=== PATIENT | female | born 1995 | race African-American/Black ===

== ENCOUNTER 2016-12-20 11:57 | Inpatient (IN) | payer OTHER ==
[2016-12-20] VITALS (69 sets, daily range): BP systolic 86–195; BP diastolic 45–115
[~2016-12-20] VITALS: Ht 185.4 cm; Wt 62.0 kg
[2016-12-20] MEDS ORDERED: PRENTAB16 PO (12:07)
[2016-12-20] MEDS ORDERED: MAG Sulf (OBGYN) 20GM/500ML 20,000 MG in APPROPRIATE DILUENT 1 EA IV SCH ×2 (12:30→14:00)
[2016-12-20] MEDS ORDERED: NIFEdipine 10 MG CAP As Ordered ONE (13:00)
[2016-12-20] MEDS ORDERED: MAG Sulf (L&D) 4 GM/100 ML 4 GM in APPROPRIATE DILUENT 1 EA IV ONE (13:00)
[2016-12-20] MEDS ORDERED: CALCIUM GLUCONATE 1,000 MG in D5W MINI-BAG PLUS 100 ML IV PRN (13:00)
--- NOTE | 2016-12-20 13:03 | HPEPDOC ---
Obstetrical History & Physical General Date of Admission Dec 20, 2016 at 11:57 History of Present Illness 21 yo G1 @ 37+1 by LMP([id number]) and 9 wk US on 09JUN2016. Presents to L&D in wheelchair from [facility] with severe range BPs in clinic(164/107). She had a hx of mild range BPs at previous clinic visit. 24 hour protein-476. Denies DFM, LOF, CTX, VB, CRANDALL, visual changes, RUQ pain and n/v. GBS-Negative. Chief Complaint: Pre-eclamsia Information Provided By: Patient Age: 21 : 1 Term: 0 Pre-term: 0 Abortions: 0 Livin Care Care: Good Care Number of Visits: 11 Dating Final EDC: Jan 09, 2017 Final EDC for Daily Update: Jan 09, 2017 Final EDC by: LMP LMP: Apr 04, 2016 1st Trimester Date: Jun 09, 2016 Weeks + Days: 9.0 Estimated Date of Confinement: Jan 09, 2017 EGA at Admission: 37.1 Antepartum Course Diagnos(e)s 1. Chlamydia- positive @ [facility]; [facility] negative 2. UTI @ [facility], tx, [facility] negative 3. Back pain-resolved 4. anemia- iron ordered 5. mild range BP @ 36 wk visit Height (inches): 62 Pre- weight (lbs.): 118 Admission Weight (lbs.): 140 Change in Weight (lbs.): 22 Past Medical History Past Obstetrical History : Past Obstetrical History: [facility] History: No pertinent history Past Medical History Surgical History: Sharon teeth (2015) Family History Significant Family History: No pertinent family hx Social History Marital Status: Single Psychosocial History: No pertinent psych hx * Smoker: non-smoker Alcohol: Denies Drugs: denies Abuse Violence Screening Have you been hit/kicked/slapp: No Imunizations Tdap status: current ([id number]) Influenza Status: current (29MAR2016) Allergies Coded Allergies: No Known Allergies (Unverified , 12/20/16) Medications Scheduled Multivitamins/ ( Complete 14-0.4 mg) 1 Tab Tab, TAB PO DAILY Physical Examination Physical Examination GENERAL: A&O x 3 ABDOMEN: Gravid, soft and non-tender to touch FETUS: VTX by Vito and SVE HEART RATE: RRR, no m/r/g LUNGS: CTA EXTREMITIES: No edema. No clonus. DTRs +2 Laboratory Data 24H LABS Laboratory Tests 2 12/20/16 12:27: Serology Scanned Report Hepatitis B Testing CBC/BMP 5.6/11.7/34.8/206 24 hour Protein- 476 uric acid-5.0 ALT-38 AST-33 LDH- 432 Urine Culture: Other (UTI @ [facility] treated, DIVINE mixed len) Pertinent Laboratoy Data Blood Type: B+ RBC Antibody Screen: Negative HIV: Negative Hepatitis B: Negative Hepatitis C: Unknown Rapid Plasma Reagin: Nonreactive Rubella: Immune Varicella: Immune Chlamydia/Gonorrhea: Negative (chlamydia positive @ [facility], neg on [facility]) Group B Streptococcus: Negative Quad Screen Test: Negative Glucose Tolerance Test: 97 Anatomy Ultrasound Ultrasound Date: Aug 22, 2016 Placenta Location: Anterior Normal Anatomy: Yes Placenta Previa: No Estimated Weight (grams): 336 Steroid Therapy Steroid Therapy: No Vaginal Examination Dilation: None Effacement: 0-30% Station: -3 Cervical Consistency: Firm Cervical Position: Posterior Presentation: Cephalic presentation Position: Vertex (occiput) Assessment Heart Rate (FHR): 140 Variability: Minimal to moderate Accelerations: None Tocometer Frequency: every 2-5 min. Duration: less than 60 seconds Strength: palpated as mild, resting tone palp/soft Multi-drug resistant Organism: No history of MDRO Assessment/Plan Assessment 21 yo G1 @ 37+1 by LMP([id number]) and 9 wk US on 09JUN2016. Presents to L&D in wheelchair from [facility] with severe range BPs in clinic(164/107). She had a hx of mild range BPs at previous clinic visit. 24 hour protein-476. Denies DFM, LOF, CTX, VB, CRANDALL, visual changes, RUQ pain and n/v. GBS-Negative. CAT I FHR tracing, with pre-e with severe features Plan Admit and orient. Manufacturing Engineering Manager and consent. Diet: NPO GBS negative Labs and IV per protocol Magnesium bolus 4 gms and then 2 gms/hr IV Nifedipine protocol for pre-e with severe features wesly now Strict I&O Counseled on induction of labor IOL. LR @ 125 ml/hr-titrated to not exceed a total of 125 ml IV/hr Anticipate DAVE SNOW CNM Dec 20, 2016 13:03
[2016-12-20] MEDS: LR 1,000 ML IV SCH (13:08)
[2016-12-20 13:15] LABS: MEAN CORPUSCULAR HEMOGLOBIN 30.3 pg (27.0-33.0); MEAN CORPUSCULAR HGB CONC 34.3 g/dl (32.0-36.5); MEAN CORPUSCULAR VOLUME 88.3 fl (80.0-96.0); RED CELL DISTRIBUTION WIDTH 12.9 % (11.5-14.5); WHITE BLOOD COUNT 6.2 K/mm3 (4.0-10.0)
[2016-12-20] MEDS ORDERED: NIFEdipine 10 MG CAP PO ONE (13:15)
[2016-12-20 13:29] LABS: ALT/SGPT 25 U/L (12-78); AST/SGOT 25 U/L (15-37); BILIRUBIN,TOTAL 0.4 MG/DL (0.2-1.0); CREATININE FOR GFR 0.69 MG/DL (0.55-1.02); URIC ACID 4.6 MG/DL (2.6-6.0)
--- NOTE | 2016-12-20 13:34 | IPNPDOC ---
Text Note Date of Service The patient was seen on 12/20/16. NOTE [id number] @ 1326 21 yo G1 @ 37+1 here for IOL with dx pre-eclampsia with severe features. S: resting on her left side. 2 friends at bedside for support. O: BPs have been in the severe range. Nifedipine 10 mg given PO approx 10 min ago. 5 min post-dose BP 160/102; 10 min post-dose BP 118/67; 15 min post-dose BP 120/65; 20 min post-dose BP 95/53 Magnesium is infusing FHR- BL 140, moderate variability, + accels, no decels CTX- Q 2-5 min, lasting < 90 sec, palpated as mild, resting tone palpated as soft EFW-3200 grams (did not document in H&P) SVE- closed/thick/high, vtx/post/firm 21 yo G1 @ 37+1 by LMP([id number]) and 9 wk US on [id number]. Presents to L&D in wheelchair from [facility] with severe range BPs in clinic(164/107). She had a hx of mild range BPs at previous clinic visit. 24 hour protein-476. Denies DFM, LOF, CTX, VB, CRANDALL, visual changes, RUQ pain and n/v. GBS-Negative. VS,Fishbone, I+O VS, Fishbone, I+O Laboratory Tests 12/20/16 12:47 Red Blood Count 3.80 L, Mean Corpuscular Volume 88.3, Mean Corpuscular Hemoglobin 30.3, Mean Corpuscular Hemoglobin Concent 34.3, Red Cell Distribution Width 12.9 DAVE SNOW CNM Dec 20, 2016 13:33
[2016-12-20] MEDS: MAG Sulf (OBGYN) 20GM/500ML 20,000 MG in APPROPRIATE DILUENT 1 EA IV SCH (13:40)
[2016-12-20] MEDS ORDERED: OXYTOCIN DRIP 30 UNITS in APPROPRIATE DILUENT 1 EA IV SCH (19:00)
--- NOTE | 2016-12-20 21:12 | IPNPDOC ---
Text Note Date of Service The patient was seen on 12/20/16. NOTE SBAR from CORNELIUS Hammond at ~2100 States feeling well, no CRANDALL/vis changes. On mag sulfate 1 gm/hr. BP's have been stable since dropping earlier with 1 dose PO nifedipine. NST Cat 1, ctx's spacing out and pt not feeling them, currently on 4 mu/min pitocin Will stop her pitocin and ripen the Cx with PO cytotec. 50 mcg q4 hrs prn per SOP. Sessions VS,Rosa I+O VSRosa I+O Laboratory Tests 12/20/16 12:47 Red Blood Count 3.80 L, Mean Corpuscular Volume 88.3, Mean Corpuscular Hemoglobin 30.3, Mean Corpuscular Hemoglobin Concent 34.3, Red Cell Distribution Width 12.9, Aspartate Amino Transf (AST/SGOT) 25, Alanine Aminotransferase (ALT/SGPT) 25, Lactate Dehydrogenase 225, Total Bilirubin 0.4, Uric Acid 4.6 Vital Signs Date Time Temp Pulse Resp B/P (MAP) Pulse Ox O2 Delivery O2 Flow Rate FiO2 12/20/16 20:45 87 126/78 (94) 12/20/16 19:15 98.0 18 SESSIONS,KIN Payne MD Dec 20, 2016 21:12
[2016-12-20] MEDS ORDERED: miSOPROStol 50 MCG 1/2 TAB (S0191) PO PRN (21:15)
[2016-12-21] VITALS (68 sets, daily range): BP systolic 105–192; BP diastolic 55–108
[2016-12-21] MEDS ORDERED: PROMETHAZINE INJ 25 MG/ML VIAL (J2550) IV ONE (04:15)
[2016-12-21] MEDS ORDERED: NALBUPHINE HCL 10 MG/ML AMP (J2300) IV PRN ×2 (04:15→11:09)
[2016-12-21] MEDS ORDERED: NALBUPHINE HCL 10 MG/ML AMP (J2300) IM PRN (04:15)
[2016-12-21] MEDS: LR 1,000 ML IV SCH ×3 (05:00→21:00)
--- NOTE | 2016-12-21 06:07 | IPNPDOC ---
Text Note Date of Service The patient was seen on 12/21/16. NOTE Vitals stable, no severe range BP's, neuro checks per RN all WNL NST Cat 1, decreased variability since nubain/phenergan roughly an hour ago, cytotec last at 0200. Cx 390/0/vtx well applied Doing very well. Will transition to Pitocin. Sessions VS,Rosa, I+O VS, Rosa I+O Laboratory Tests 12/20/16 12:47 Red Blood Count 3.80 L, Mean Corpuscular Volume 88.3, Mean Corpuscular Hemoglobin 30.3, Mean Corpuscular Hemoglobin Concent 34.3, Red Cell Distribution Width 12.9, Aspartate Amino Transf (AST/SGOT) 25, Alanine Aminotransferase (ALT/SGPT) 25, Lactate Dehydrogenase 225, Total Bilirubin 0.4, Uric Acid 4.6 Vital Signs Date Time Temp Pulse Resp B/P (MAP) Pulse Ox O2 Delivery O2 Flow Rate FiO2 12/21/16 04:59 79 107/57 (74) 12/21/16 04:31 97.7 12/20/16 23:59 16 I&O- Last 24 Hours up to 6 AM 12/21/16 06:00 Intake Total 1750 ml Output Total 2975 ml Balance -1225 ml SESSIONS,KIN Payne MD Dec 21, 2016 06:07
[2016-12-21 06:42] LABS: MEAN CORPUSCULAR HEMOGLOBIN 30.1 pg (27.0-33.0); MEAN CORPUSCULAR HGB CONC 34.1 g/dl (32.0-36.5); MEAN CORPUSCULAR VOLUME 88.3 fl (80.0-96.0); RED CELL DISTRIBUTION WIDTH 12.8 % (11.5-14.5); WHITE BLOOD COUNT 6.9 K/mm3 (4.0-10.0)
--- NOTE | 2016-12-21 08:13 | IPNPDOC ---
Text Note Date of Service The patient was seen on 12/21/16. NOTE [id number] @ [address] Fierro @ 6374- report given. 21 yo G1 @ 37+2 here for IOL with dx pre-eclampsia with severe features. S: resting on her right side. Pt responds slowly to commands. Moans during CTXs and falls asleep between CTXs. Mother and grandmother at bedside for support. O: VS- normal to moderate range BPs, afebrile FHR- BL 130, minimal to absent variability, no accels, early decels; last accel @ 0130 CTX- Q 2-5 min, lasting < 90 sec, palpated as mod-strong, resting tone palpated as soft SVE- 6/90/-2, soft/ant/vtx AROM- moderate amount of clear fluid, no odor noted Magnesium- 1 gm/hr Pitocin @ 2 mU/min O2 in place A: 21 yo G1 @ 37+2 in active labor with pre-e with severe features. CAT II FHR tracing and continued cervical change P: continue to monitor, reassess in 2 hours or prn, nursing checks Q 15 min, epidural now, 800 ml LR bolus now, continue to titrate pitocin per unit protocol FHR tracing reviewed with Dr. Veronica(came to floor and looked at tracing) VS,Estevane, I+O VS, Estevane, I+O Laboratory Tests 12/20/16 12:47 Red Blood Count 3.80 L, Mean Corpuscular Volume 88.3, Mean Corpuscular Hemoglobin 30.3, Mean Corpuscular Hemoglobin Concent 34.3, Red Cell Distribution Width 12.9, Aspartate Amino Transf (AST/SGOT) 25, Alanine Aminotransferase (ALT/SGPT) 25, Lactate Dehydrogenase 225, Total Bilirubin 0.4, Uric Acid 4.6 12/21/16 06:32 Red Blood Count 3.74 L, Mean Corpuscular Volume 88.3, Mean Corpuscular Hemoglobin 30.1, Mean Corpuscular Hemoglobin Concent 34.1, Red Cell Distribution Width 12.8 Vital Signs Date Time Temp Pulse Resp B/P (MAP) Pulse Ox O2 Delivery O2 Flow Rate FiO2 12/21/16 06:45 89 120/66 (84) 12/21/16 06:00 16 12/21/16 04:31 97.7 I&O- Last 24 Hours up to 6 AM 12/21/16 06:00 Intake Total 2150 ml Output Total 3225 ml Balance -1075 ml DAVE SNOW [facility] Dec 21, 2016 08:13
[2016-12-21] MEDS ORDERED: NIFEdipine 10 MG CAP PO ONE (08:34)
--- NOTE | 2016-12-21 08:39 | IPNPDOC ---
Text Note Date of Service The patient was seen on 12/21/16. NOTE [id number] @ 0833 21 yo G1 @ 37+2 here for IOL with dx pre-eclampsia with severe features. S: resting on her right side. Pt responds slowly to commands. Moans during CTXs and falls asleep between CTXs. Mother and grandmother at bedside for support. O: VS- Severe range BPs noted (192/105 @ 0823 & 167/108 @ 0829) Nifedipine 10 mg PO ordered stat Magnesium- 1 gm/hr Pitocin @ 2 mU/min O2 in place DTRs +3 A: 21 yo G1 @ 37+2 in active labor with pre-e with severe features. CAT II FHR tracing and continued cervical change and severe range BPs P: continue to monitor, reassess in 2 hours or prn, nursing checks Q 15 min, epidural now, 800 ml LR bolus now, continue to titrate pitocin per unit protocol Dr. Veronica notified of BPs and order for nifedipine VS,Fishbone, I+O VS, Fishbone, I+O Laboratory Tests 12/20/16 12:47 Red Blood Count 3.80 L, Mean Corpuscular Volume 88.3, Mean Corpuscular Hemoglobin 30.3, Mean Corpuscular Hemoglobin Concent 34.3, Red Cell Distribution Width 12.9, Aspartate Amino Transf (AST/SGOT) 25, Alanine Aminotransferase (ALT/SGPT) 25, Lactate Dehydrogenase 225, Total Bilirubin 0.4, Uric Acid 4.6 12/21/16 06:32 Red Blood Count 3.74 L, Mean Corpuscular Volume 88.3, Mean Corpuscular Hemoglobin 30.1, Mean Corpuscular Hemoglobin Concent 34.1, Red Cell Distribution Width 12.8 Vital Signs Date Time Temp Pulse Resp B/P (MAP) Pulse Ox O2 Delivery O2 Flow Rate FiO2 12/21/16 08:07 74 142/86 (104) 12/21/16 07:52 98.0 16 I&O- Last 24 Hours up to 6 AM 12/21/16 06:00 Intake Total 2150 ml Output Total 3225 ml Balance -1075 ml DAVE SNOW CNM Dec 21, 2016 08:39
[2016-12-21] MEDS ORDERED: FENTANYL 2MCG/ML ROPIVACAINE 0.2% IN 0.9% NACL 200ML IVBAG As Ordered ONE (09:23)
[2016-12-21] MEDS ORDERED: OXYTOCIN INJ 10 UNITS/ML VIAL (J2590) IV ONE (10:00)
[2016-12-21] MEDS: MAG Sulf (OBGYN) 20GM/500ML 20,000 MG in APPROPRIATE DILUENT 1 EA IV SCH (10:00)
[2016-12-21] MEDS ORDERED: MORPHINE PRES-FREE INJ 10 MG/10 ML VIAL (J2274) As Ordered ONE (11:05)
[2016-12-21] MEDS ORDERED: NALOXONE INJ 0.4 MG/1 ML VIAL (J2310) IV PRN ×3 (11:09→12:00)
[2016-12-21] MEDS ORDERED: ONDANSETRON 4MG/2ML VIAL (J2405) IV PRN ×3 (11:09→12:00)
[2016-12-21] MEDS ORDERED: METOCLOPRAMIDE INJ 10MG/2ML VIAL (J2765) IV PRN (11:09)
[2016-12-21 11:31] LABS: CORD GAS PCO2 A 66.8 mmHg; CORD GAS PH A 7.155 UNITS; CORD GAS PO2 A 15.6 mmHg; CORD GAS SBC A 17.2 MEQ/L; CORD GAS TCO2 A 25.1 MEQ/L
[2016-12-21] MEDS ORDERED: OXYTOCIN DRIP 30 UNITS in APPROPRIATE DILUENT 1 EA IV SCH (11:31)
[2016-12-21 11:34] LABS: CORD GAS HCO3 V 20.2 MEQ/L; CORD GAS PCO2 V 51.3 mmHg; CORD GAS PH V 7.213 UNITS; CORD GAS PO2 V 30.5 mmHg; CORD GAS SBC V 17.3 MEQ/L; CORD GAS TCO2 V 21.8 MEQ/L
[2016-12-21] MEDS ORDERED: PROMETHAZINE 25 MG TAB PO PRN (11:45)
[2016-12-21] MEDS ORDERED: MOM 30ML SUSPENSION UDC PO PRN (11:45)
[2016-12-21] MEDS ORDERED: DIBUCAINE 1% OINTMENT 30GM TOP PRN (11:45)
[2016-12-21] MEDS ORDERED: diphenhydrAMINE INJ 50MG/ML VIAL (J1200) IV PRN (12:00)
[2016-12-21] MEDS ORDERED: EPIDURAL COMMENT XX SCH (12:00)
[2016-12-21] MEDS ORDERED: REFRIGERATOR IV KEYS XX PRN (12:00)
[2016-12-21] MEDS ORDERED: ePHEDrine SULFATE 25 MG/5 ML(5MG/ML) SYRINGE IV PRN (12:00)
[2016-12-21] MEDS ORDERED: FENTANYL/ROPIVACAINE/NACL BAG 200 ML EPIDURAL SCH (12:00)
[2016-12-21] MEDS ORDERED: EPIDURAL/PCA KEYS XX PRN (12:00)
--- NOTE | 2016-12-21 13:16 | IPNPDOC ---
Text Note Date of Service The patient was seen on 12/21/16. NOTE [id number] @ 1155 (late entry) Anesthesia arrived to place epidural. Pt was c/o pressure and needing to poop. SVE- c/c/+3. Encouraged patient to push. She kicked her legs out and was uncooperative with the staff. She refused to push. FHR dropped to the 60's for 2 min(on the monitor the FHR was doubling), then returned to BL. Dr. Veronica called to bedside @ 3788 for assistance. He arrived within minutes and assumed care of the patient. See Dr. Veronica's delivery summary. VS,Fishbone, I+O VS, Fishbone, I+O Laboratory Tests 12/21/16 06:32 Red Blood Count 3.74 L, Mean Corpuscular Volume 88.3, Mean Corpuscular Hemoglobin 30.1, Mean Corpuscular Hemoglobin Concent 34.1, Red Cell Distribution Width 12.8 Vital Signs Date Time Temp Pulse Resp B/P (MAP) Pulse Ox O2 Delivery O2 Flow Rate FiO2 12/21/16 08:07 74 142/86 (104) 12/21/16 07:52 98.0 16 I&O- Last 24 Hours up to 6 AM 12/21/16 06:00 Intake Total 2150 ml Output Total 3225 ml Balance -1075 ml DAVE SNOW CNM Dec 21, 2016 13:16
[2016-12-21] MEDS: DOCUSATE SODIUM 100 MG CAP PO SCH (21:00)
[2016-12-22] VITALS (12 sets, daily range): BP systolic 109–166; BP diastolic 55–94
[2016-12-22] MEDS: IBUPROFEN 800 MG TAB PO PRN ×2 (01:27→15:21)
[2016-12-22] MEDS: LR 1,000 ML IV SCH ×3 (05:00→21:00)
[2016-12-22] MEDS: MAG Sulf (OBGYN) 20GM/500ML 20,000 MG in APPROPRIATE DILUENT 1 EA IV SCH (06:00)
[2016-12-22 07:08] LABS: MEAN CORPUSCULAR HEMOGLOBIN 30.1 pg (27.0-33.0); MEAN CORPUSCULAR HGB CONC 34.4 g/dl (32.0-36.5); MEAN CORPUSCULAR VOLUME 87.6 fl (80.0-96.0); RED CELL DISTRIBUTION WIDTH 13.3 % (11.5-14.5); WHITE BLOOD COUNT 14.8 K/mm3 (4.0-10.0)
[2016-12-22] MEDS: PRENATAL VITAMINS CHEWABLE TABLET PO SCH (09:00)
[2016-12-22] MEDS: DOCUSATE SODIUM 100 MG CAP PO SCH ×4 (09:00→23:11)
[2016-12-22] MEDS ORDERED: LABETALOL 200 MG TAB PO ONE (19:15)
--- NOTE | 2016-12-22 19:21 | DN ---
DATE: 12/20/2016 I was called at request of the nurse dance therapist as this patient was out of control on the bed with no anesthesia and bradycardia persistent at 60 with shoulder presentation on the monitor strip. After trying to calm the patient down, it was obvious that there was going to be no cooperation with the patient. She refused to push. She was flailing her arms and her legs. On examination the head was at 0 station, and all that was required was pushing on the behalf of the patient; however, she refused to push and was flailing on the bed. Therefore, we reinserted a Lerma catheter, as this patient had been induced at 37 and 3 for pre-eclampsia, and we tried to explain to the patient and the mother regarding the need for a vacuum delivery, because there was imminent delivery, but we needed cooperation by the patient, and even her mother could not calm her down in order to have her cooperate. Therefore, the Kiwi vacuum was placed in the appropriate position. We waited for a contraction. With Pitocin and with considerable effort the patient did eventually push, and we did one pull to the perineum, and unfortunately the patient moved her bottom and flailed her legs with a spontaneous delivery of the head. The rest of the baby came out remarkably well and quickly, 5 pounds 12 ounces, 2594 grams, scores of 8 and 9 at one and five minutes, respectively. Arterial and venous pH were done, and placenta delivered spontaneously thereafter. We visualized the vagina and the cervix, and because of this patient's inability to control, she sustained a third-degree tear; however, she was not cooperative in letting us repair appropriately, and therefore we required to have an epidural. Anesthesia was consulted, an epidural was in place, and even despite the epidural the patient was still complaining, although she could only feel touch, but she could not feel pain, and we subjectively tried to demonstrate that, but there was definitely no pain. We re-examined the sphincter, and we re-examined the mucosa of the rectum. The mucosa the rectum was clear and clean. The lady had two bilateral vaginal lacerations, which went up about 5 cm on either side. These were repaired individually, and it was brought down to the perineal body. With that done, we then put the perineal muscle back together again with a 2-0 Vicryl and a [id number]. We then went ahead and repaired the capsule around the muscle, and again with digital examination there was good tone, and there was no evidence of demonstration of perforation into the mucosa. We then went ahead and repaired the spontaneous midline episiotomy with 2-0 Vicryl and a J339 separately in order to decrease the incidence of pressure on the stitching sites. With that done, we evaluated again sphincter and mucosa, which were intact. The re-examined the vagina, which was intact, outside of two vaginal lacerations. Lerma catheter was left in because of her pre-eclampsia and 24 hours being on magnesium sulfate. Uterus was evaluated and found to be under good control, well contracted. No excessive vaginal bleeding. Estimated blood loss 150 mL. The patient and baby tolerated procedure well.
[2016-12-23] VITALS (8 sets, daily range): BP systolic 134–184; BP diastolic 68–102
[2016-12-23] MEDS: IBUPROFEN 800 MG TAB PO PRN (02:42)
[2016-12-23 06:54] LABS: MEAN CORPUSCULAR HEMOGLOBIN 30.8 pg (27.0-33.0); MEAN CORPUSCULAR HGB CONC 34.7 g/dl (32.0-36.5); MEAN CORPUSCULAR VOLUME 88.7 fl (80.0-96.0); RED CELL DISTRIBUTION WIDTH 13.2 % (11.5-14.5); WHITE BLOOD COUNT 14.5 K/mm3 (4.0-10.0)
--- NOTE | 2016-12-23 07:18 | IPNPDOC ---
Text Note Date of Service The patient was seen on 12/23/16. NOTE PPD2 prog note States feeling well, no complaints. No heavy VB or CRANDALL. Pain controlled. Voiding, ambulatory. Bonding well and bottle/breast feeding well. Labetalol 200 BID started last night with a few severe range BP's, no Pre-E sx' s at the time. Good effect with the Labetalol. VSSAF, only a few mild range BP's since the Labetalol started CTAB RRR Ut at U-2, firm Ext no CCE DTR's 1+, no clonus a/p: Doing well. d/c likely tomorrow AM, will watch BP's closely. Labetalol 200 BID added to d/c meds. Sessions Rosa ARELLANO, I+O VSRosa I+O Laboratory Tests 12/23/16 06:42 Red Blood Count 3.29 L, Mean Corpuscular Volume 88.7, Mean Corpuscular Hemoglobin 30.8, Mean Corpuscular Hemoglobin Concent 34.7, Red Cell Distribution Width 13.2 Vital Signs Date Time Temp Pulse Resp B/P (MAP) Pulse Ox O2 Delivery O2 Flow Rate FiO2 12/23/16 06:33 98.7 62 16 146/68 (94) I&O- Last 24 Hours up to 6 AM 12/23/16 06:00 Intake Total 650 ml Output Total 1600 ml Balance -950 ml SESSIONS,KIN Payne MD Dec 23, 2016 07:18
[2016-12-23] MEDS: PRENATAL VITAMINS CHEWABLE TABLET PO SCH (08:10)
[2016-12-23] MEDS: DOCUSATE SODIUM 100 MG CAP PO SCH ×3 (08:11→21:29)
[2016-12-23] MEDS: LABETALOL 200 MG TAB PO SCH ×2 (08:11→21:30)
[2016-12-24] VITALS (10 sets, daily range): BP systolic 113–167; BP diastolic 72–105
[2016-12-24] MEDS: PRENATAL VITAMINS CHEWABLE TABLET PO SCH (09:00)
[2016-12-24] MEDS: DOCUSATE SODIUM 100 MG CAP PO SCH ×3 (09:00→21:05)
[2016-12-24] MEDS: LABETALOL 200 MG TAB PO SCH (09:01)
[2016-12-24] MEDS ORDERED: LABETALOL 100 MG TAB PO ONE (10:45)
--- NOTE | 2016-12-24 10:46 | IPNPDOC ---
Text Note Date of Service The patient was seen on 12/24/16. NOTE [id number] @ 1012 Contacted by SHAYAN Shin. Informed me the patients BPs are in the severe range. She was given 200 mg labetalol PO @ 0901, BP prior to 145/98. A repeat BP after medication @ 1000 (167/103) a manual BP was then taken (164/84). Consulted with Dr. Andersen. Recommended giving an additional 100 mg of labetalol PO now and then 300 mg TID. Pt will also stay another 24 hours. Discussed plan of care with RN. Spoke with Ms. Brink, her mother and grandmother and discussed pre-eclampsia, recommendations and risks of leaving with elevated blood pressures. Reviewed that increased stimuli in the room will increase blood pressures. Recommend the family allow her to rest and [place] with the baby. Mother and grandmother verbalized understanding and are going to go to Ms. Brink's home and finish setting up the nursery to help decrease stimuli in the room. Reviewed increase in medication dosage and the rationale behind the medication and expected outcome. They verbalized understanding. SHAYAN Shin witnessed entire conversation. VS,Fishbone, I+O VS, Fishbone, I+O Vital Signs Date Time Temp Pulse Resp B/P (MAP) Pulse Ox O2 Delivery O2 Flow Rate FiO2 12/24/16 10:13 164/84 (110) 12/24/16 10:12 63 18 12/24/16 05:40 97.5 12/23/16 14:00 97 Room Air DAVE SNOW CNM Dec 24, 2016 10:46
[2016-12-24] MEDS: LABETALOL 100 MG TAB PO SCH ×2 (16:11→21:05)
[2016-12-25] VITALS (10 sets, daily range): BP systolic 119–183; BP diastolic 78–106
[2016-12-25] MEDS ORDERED: NIFEdipine 30 MG XL TAB PO ONE (05:30)
[2016-12-25] MEDS ORDERED: NIFEdipine 10 MG CAP PO STA (07:07)
[2016-12-25] MEDS: DOCUSATE SODIUM 100 MG CAP PO SCH ×3 (08:09→20:51)
[2016-12-25] MEDS: PRENATAL VITAMINS CHEWABLE TABLET PO SCH (08:09)
[2016-12-25] MEDS ORDERED: NIFEdipine 30 MG XL TAB PO SCH (09:00)
--- NOTE | 2016-12-25 10:04 | IPN ---
DATE: 12/24/2016 This lady is 21-year-old 1 now para 1, who was admitted at 37 and 1 weeks' of gestation with severe range blood pressures that were demonstrated in the clinic 164/107 and she had a history of mild range blood pressures previously at clinic. She has 476 protein and she denies any visual changes or right upper quadrant pain, nausea, vomiting or the usual symptoms of pre-eclampsia. She was induced and had a low vacuum delivery because of bradycardia. She delivered a live female 5 pounds, 12 ounces 2594 grams. Arterial blood gases 7.15, base excess -7.0, venous pH was 7.23, base 7.21, base excess -8.0. Her hemoglobin admission was 11.5, hematocrit was 35.5 and platelets are 236, tracking her hemoglobin is now 10.1, hematocrit 29.1 and platelets are 204. Her chemistry that she had shows uric acid at 4.6 and tracking today her urine is negative for protein. She still has the occasional severe range blood pressure; the last one was on 12/23 1830 hours that was 160/91, previous to that at 01:30 on December 23 was 184/90. We are trying to establish a normalized either mid or normalized blood pressures and we would like to see a 24-hour normalization before discharge. Presently, she is on 200 mg of labetalol twice a day. It seems to be working, although a little bit slowly and the patient is really anxious about discharge. However, we are reinforcing that we would like to see 24 hours of normalize or midrange blood pressures before the patient to becomes discharged. The rest of the examination is unremarkable. She is normocephalic, atraumatic. Neck full range of motion. Pupils equal and reactive to light. Distal pulses are symmetric. No evidence of deep vein thrombosis (DVT), pulmonary emboli (PE), superficial phlebitis. Reflexes are normal. No edema. Chest is clear bilaterally at the bases. No wheezes or rhonchi. No costovertebral angle (CVA) tenderness Abdomen is soft. Uterus two below. Lochia is moderate. Perineum is healing. She did sustain a third degree tear, which was oversewn in usual fashion. She is passing gas and bowel movement. No rashes, lesions, pruritus. No arthralgia, myalgia. No complaint cough, wheezes, shortness of breath or dyspnea on exertion. No chest pain. No bleeding. Neuro complete. No incontinency, urgency or frequency. No nausea, vomiting, diarrhea or constipation. She does not smoke or drink abuse drugs. She has no domestic violence. In summary, we have a pre- eclampsia patient who delivered a live successfully was vacuum-assisted female and we are trying to normalize her blood pressures immediately upon 24-hour cycle. The patient will be discharged to followup in one weeks' time for reevaluation of blood pressures
[2016-12-26 02:29] VITALS: BP 140/94
[2016-12-26 05:42] VITALS: BP 147/95
--- NOTE | 2016-12-26 08:09 | DSES ---
DATE OF ADMISSION: 12/20/2016 DATE OF DISCHARGE: 12/25/2016 ADMISSION DIAGNOSES: 1. Pre-eclampsia with severe features being blood pressure. 2. Term . DISCHARGE DIAGNOSES: 1. Term . 2. Pre-eclampsia with severe features. 3. Vacuum assisted vaginal delivery. 4. Third degree laceration. HOSPITAL COURSE: The patient was admitted with induction for pre-eclampsia, severe features and underwent course of magnesium. Delivery complicated by vacuum delivery as well as third degree laceration. Completed 24 hours magnesium with noted continued severe range pressures. Afterwards with transition from labetalol to Procardia XL. Currently at 30 mg, Procardia XL every day. All other discharge criteria has been met. No headache or visual changes. Activity as tolerated, status post C section. Diet as tolerated. Medications written at [facility] due to inability to provide from clinic. Also Procardia 30 mg XL. Precautions reviewed extensively. Precautions status post a third degree repair as well as routine vaginal delivery, and pre- eclampsia/blood pressure. Also reviewed previewed precautions in regards to blood pressures. FOLLOWUP: Extensively counseled patient on recommendation for followup with in 24 to 48 hours with a provider to re-evaluate blood pressures as well as possible modification of medication at this time. Also discussed with the patient the need to followup with a provider within a week or two to look at the perineum due to third degree laceration and repair. The patient currently acknowledges and understands. Of note, unsure at this time whether patient will be following up in our clinic or will be presenting to a provider in her own town closer to [facility]. Currently safe to proceed in discharge. All questions answered. Medications written for at [facility] to include BP medication. Mariah Andersen OB-PHARMACY ACCOUNT DIRECTOR [place]
[2016-12-26] MEDS: DOCUSATE SODIUM 100 MG CAP PO SCH (08:20)
[2016-12-26] MEDS: PRENATAL VITAMINS CHEWABLE TABLET PO SCH (08:21)
[2016-12-26] MEDS ORDERED: NIFEdipine 30 MG XL TAB PO SCH (09:00)
[2016-12-26 09:10] VITALS: BP 143/80
[2016-12-26 09:16] VITALS: BP 143/80
[2016-12-26] MEDS ORDERED: COLA100C5 PO (10:04)
[2016-12-26] MEDS ORDERED: IBUP-1114 PO (10:05)
[2016-12-26] MEDS ORDERED: NUPE1OIN2 TOP (10:06)
[2016-12-26] MEDS ORDERED: PROC30TA PO (10:07)
--- NOTE | 2016-12-26 15:30 | IPN ---
DATE: 12/26/2016 21-year-old G1, P1, now status post vacuum-assisted vaginal delivery complicated by third degree periosteal, complicated by pre-eclampsia, with severe features, now status post 24 hours of magnesium. Has also transitioned from 300 mg three times a day of labetalol to nifedipine XL 30 mg. Reports no headache or vision changes. Decreasing lochia. Breast feeding without issues. No other major complaints. OBJECTIVE: VITAL SIGNS: With last severe range pressures of 163/102 at 6:30, 158/98 at 7:30. Otherwise within normal limits. GENERAL: Alert and oriented times three. No acute distress. RESPIRATORY: Clear to auscultation bilaterally. CARDIOVASCULAR: Normal sinus rhythm. ABDOMEN: Bowel sounds are present, fundus U-2. EXTREMITIES: 2+ bilateral lower extremity, dorsal pedis posterior tip pulses, negative Homans bilateral lower extremities. ASSESSMENT AND PLAN: 21-year-old G1, P1, now status post preeclampsia, severe features, vacuum-assisted vaginal delivery, third degree laceration and repair, and continued elevated blood pressures, now on nifedipine 30 mL XL. Has not had a severe range pressure since 0730 yesterday morning. Long discussion with patient that will monitor for another hour or two and if blood pressures continue to maintain in a non-severe range will consider discharge this day with nifedipine 30 mg XL. Has followup pending at [facility] for . The patient had previously discussed with family and verbalized to providers that plans [place]. Extensively discussed with the patient the need for followup for evaluation of the peritoneum as well as followup for blood pressures. The patient to discuss with family on whether to be seen at other clinic or to return to this clinic. Currently safe to proceed, routine care. Edited: juan alberto 01/06/2017 1508 MTDD
== END 2016-12-26 11:15 | disposition home or self-care (01) | DRG 775 ==
LOC: M LDI 11:57 → M OBS 12-22 13:35
PROVIDERS: ADMIT Midwife; ATTEND Midwife
PROC: 10D07Z6 Extraction of Products of Conception, Vacuum, Via Natural or Artificial Opening (ICD-10-PCS; principal; 2016-12-20)
PROC: 0DQR0ZZ Repair Anal Sphincter, Open Approach (ICD-10-PCS; 2016-12-20)
PROC: 3E033VJ Introduction of Other Hormone into Peripheral Vein, Percutaneous Approach (ICD-10-PCS; 2016-12-20)
PROC: 0HQ9XZZ Repair Perineum Skin, External Approach (ICD-10-PCS; 2016-12-20)
PROC: 10907ZC Drainage of Amniotic Fluid, Therapeutic from Products of Conception, Via Natural or Artificial Opening (ICD-10-PCS; 2016-12-20)
DX: O14.14 Severe pre-eclampsia complicating childbirth (principal); Z37.0 Single live birth; Z3A.37 37 weeks gestation of pregnancy; D64.9 Anemia, unspecified; Z79.899 Other long term (current) drug therapy; O76 Abnormality in fetal heart rate and rhythm complicating labor and delivery; O70.0 First degree perineal laceration during delivery; O70.20 Third degree perineal laceration during delivery, unspecified; O99.02 Anemia complicating childbirth

== ENCOUNTER 2017-11-16 08:13 | Emergency (ER) | payer OTHER ==
[2017-11-16] MEDS: NS 1,000 ML IV (08:30)
[2017-11-16 08:35] LABS: BASO % 0.5 % (0.0-1.0); EOS % 0.3 % (0.0-3.0); HEMATOCRIT 38.1 % (36.0-47.0); HEMOGLOBIN 12.9 g/dl (12.0-15.5); IMMATURE GRANULOCYTE % 0.3 % (0-3.0); LYMPH # 1.5 10^3/uL (1.5-6.5); LYMPH % 22.2 % (24.0-44.0); MEAN CORPUSCULAR HEMOGLOBIN 28.7 pg (27.0-33.0); MEAN CORPUSCULAR HGB CONC 33.9 g/dl (32.0-36.5); MEAN CORPUSCULAR VOLUME 84.9 fl (80.0-96.0); MONO # 0.4 10^3/uL (0.0-0.8); MONO % 6.1 % (0.0-5.0); NEUTROPHILS # 4.7 10^3/uL (1.8-7.7); NEUTROPHILS % 70.6 % (36.0-66.0); PLATELET COUNT, AUTOMATED 282 10^3/uL (150-450); RED BLOOD COUNT 4.49 10^6/uL (4.00-5.40); RED CELL DISTRIBUTION WIDTH 12.5 % (11.5-14.5); WHITE BLOOD COUNT 6.6 10^3/uL (4.0-10.0)
[2017-11-16 08:48] LABS: CONTROL LINE HCG INT CTR LINE PRESENT; HCG, SERUM QUALITATIVE NEGATIVE (NEGATIVE)
[2017-11-16 09:04] LABS: ANION GAP 13 MEQ/L (8-16); BLOOD UREA NITROGEN 18 MG/DL (7-18); CALCIUM LEVEL 9.3 MG/DL (8.5-10.1); CARBON DIOXIDE LEVEL 20 MEQ/L (21-32); CHLORIDE LEVEL 108 MEQ/L (98-107); CREATININE FOR GFR 1.13 MG/DL (0.55-1.30); GLOMERULAR FILTRATION RATE > 60.0 (>60); GLUCOSE, FASTING 66 MG/DL (70-100); POTASSIUM SERUM 3.7 MEQ/L (3.5-5.1); SODIUM LEVEL 141 MEQ/L (136-145)
== END 2017-11-16 10:46 | disposition home or self-care (01) ==
LOC: M ED 08:13
DX: R55 Syncope and collapse (principal)
CPT/HCPCS: 93005

== ENCOUNTER → 2018-03-02 | Outpatient (CLI) | payer OTHER ==
[~2018-03-02] MED LIST: CONRAY-43 43% 50ML VIAL (Q9960) As Ordered; LIDOCAINE 1% MDV 20ML VIAL As Ordered; TRIAMCINOLONE ACETONIDE SUSP 40 MG/ML VIAL (J3301) As Ordered
== END ==
LOC: M RADPRO 09:20
DX: M24.159 Other articular cartilage disorders, unspecified hip (principal)
CPT/HCPCS: 20610

== ENCOUNTER → 2018-06-18 | Outpatient (CLI) | payer OTHER ==
[~2018-06-18] MED LIST changes: +COLA100C5 PO; -CONRAY-43 43% 50ML VIAL (Q9960) As Ordered; +CONRAY-43 43% 50ML VIAL (Q9960) As Ordered ONE; +IBUP-1114 PO; -LIDOCAINE 1% MDV 20ML VIAL As Ordered; +NUPE1OIN2 TOP; +PRENTAB16 PO; +PROC30TA PO; +PROHANCE 279.3MG/ML 5ML VIAL (A9576) As Ordered ONE; -TRIAMCINOLONE ACETONIDE SUSP 40 MG/ML VIAL (J3301) As Ordered
--- NOTE | 2018-06-18 09:23 | REP ---
MR ARTHROGRAM LEFT HIP: HISTORY: Left hip pain. Evaluate for labral tear. Potential surgical planning. COMPARISON STUDIES: No comparison imaging is available . TECHNIQUE: Precontrast imaging includes coronal T1- and T2-weighted scans of both hips. Postcontrast small field of view high resolution axial, coronal and sagittal images are acquired in T1 and T2-weighted scans with fat saturation. MR ARTHROGRAPHIC FINDINGS: Cortical and medullary bone signal intensity are normal in the proximal femurs bilaterally. There is no evidence of avascular necrosis on either side. There is no evidence of hip joint effusion on either side. Uterus is tipped somewhat to the left but normal in appearance. No abdominal wall defect. No pelvic mass or adenopathy is seen. Cortical and medullary bone signal intensity are normal in the visualized bony pelvic ring. Post injection MR imaging shows good filling and enhancement of the left hip articulation. Ligamentum teres is intact. There is some gadolinium-enhanced saline undermining the posterior aspect of the labral cartilage, posterior labral tear cannot be excluded. On axial post injection images, there is a convexity at the posterior head neck junction region of the proximal fibular which raises a question of cam-type femoral acetabular impingement. No articular cartilage injury is appreciated. 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 Electronically Signed by Kleber Umanzor MD 06/18/2018 10:20 A
--- NOTE | 2018-06-18 20:18 | REP ---
Left hip arthrogram The procedure was performed under the direction supervision of Dr. Umanzor. The benefits and risks including but not limited to pain, infection, bleeding and anaphylaxis were explained to the patient and informed consent was obtained. The left femoral neck was localized using fluoroscopic guidance. Skin was prepped and draped in a sterile fashion. 1% lidocaine was used as a local anesthetic. Using fluoroscopic guidance a 22 gauge spinal needle was inserted and advanced to the femoral neck. 0.5 ml of Conray 43 was injected to verify placement. 11 ml of a solution containing 20 ml of sterile saline and 0.15 ml of ProHance was injected into the joint. The needle was removed and the patient was taken to MRI for postprocedural imaging. The patient tolerated the procedure well and there were no immediate complications. Less than 6 seconds in a of fluoro time was utilized for this procedure. Reviewed by JOSEPH Paul 06/18/2018 05:08 P Electronically Signed by Kleber Umanzor MD 06/18/2018 08:09 P
== END ==
LOC: M RADPRO 06:36
PROVIDERS: ATTEND Physician Assistant
DX: R93.7 Abnormal findings on diagnostic imaging of other parts of musculoskeletal system (principal); M25.552 Pain in left hip
CPT/HCPCS: 27093; 73723; 77002; A9576; Q9960